=== PATIENT | male | born 1960 | race Caucasian/White ===

== ENCOUNTER → 2023-10-30 17:26 | Outpatient (REF) | payer BC, SELFPAY | LOC: CLAB 17:26 | PROVIDERS: ATTENDING PHYSICIAN Otolaryngology; FAMILY PHYSICIAN Family Medicine; REFERRING PHYSICIAN Family Medicine Sleep Medicine | DX: J32.9 Chronic sinusitis, unspecified (principal) | CPT/HCPCS: 88304; 88311; 87070; 87075; 87205 ==